=== PATIENT | female | born 1945 | race Caucasian/White ===

== ENCOUNTER → 2023-05-28 10:52 | Outpatient (REF) | payer MEDICARE, SELFPAY | LOC: DHCBC MAIN 10:52 | PROVIDERS: ATTENDING PHYSICIAN Internal Medicine Cardiovascular Disease; FAMILY PHYSICIAN Family Medicine | DX: I48.21 Permanent atrial fibrillation (principal); R55 Syncope and collapse; I36.1 Nonrheumatic tricuspid (valve) insufficiency | CPT/HCPCS: 93306 ==

== ENCOUNTER → 2024-03-16 09:39 | Outpatient (REF) | payer MEDICARE, SELFPAY | LOC: RCS 09:39 | PROVIDERS: ATTENDING PHYSICIAN Nurse Practitioner Gerontology; FAMILY PHYSICIAN Family Medicine | DX: I48.21 Permanent atrial fibrillation (principal); R42 Dizziness and giddiness | CPT/HCPCS: 93225; 93226 ==

== ENCOUNTER → 2024-05-04 09:39 | Outpatient (REF) | payer MEDICARE, SELFPAY | LOC: RAD 09:39 | PROVIDERS: ATTENDING PHYSICIAN Nurse Practitioner Family | DX: J45.909 Unspecified asthma, uncomplicated (principal) | CPT/HCPCS: 71046 ==

== ENCOUNTER → 2024-07-01 08:44 | Outpatient (REF) | payer MEDICARE, SELFPAY | LOC: RCS 08:44 | PROVIDERS: ATTENDING PHYSICIAN Internal Medicine Cardiovascular Disease; FAMILY PHYSICIAN Family Medicine | DX: I36.1 Nonrheumatic tricuspid (valve) insufficiency (principal); I34.0 Nonrheumatic mitral (valve) insufficiency | CPT/HCPCS: 93306 ==

== ENCOUNTER → 2024-07-22 08:18 | Outpatient (REF) | payer MEDICARE, SELFPAY | LOC: RAD 08:18 | PROVIDERS: ATTENDING PHYSICIAN Nurse Practitioner Family | DX: M54.2 Cervicalgia (principal) | CPT/HCPCS: 72050 ==

== ENCOUNTER → 2025-01-11 10:57 | Outpatient (REF) | payer MEDICARE, SELFPAY | LOC: PAVMRI 10:57 | PROVIDERS: ATTENDING PHYSICIAN Internal Medicine; FAMILY PHYSICIAN Family Medicine | DX: M48.02 Spinal stenosis, cervical region (principal) | CPT/HCPCS: 72141 ==

== ENCOUNTER 2025-03-18 11:17 | Outpatient (RCR) | payer MEDICARE, SELFPAY ==
[2025-03-11 10:51] VITALS: BP 142/66
[2025-03-11] MEDS: VENOFER 110 MG IV (11:03)
[2025-03-11 12:26] VITALS: BP 140/67
[2025-03-18 11:30] VITALS: BP 186/99
[2025-03-18] MEDS: VENOFER 110 MG IV (11:40)
[2025-03-18 12:47] VITALS: BP 171/75
== END 2025-03-20 23:59 | disposition home or self-care (01) ==
LOC: OID 11:17
PROVIDERS: ATTENDING PHYSICIAN Family Medicine
DX: D50.8 Other iron deficiency anemias (principal); M79.7 Fibromyalgia; J44.9 Chronic obstructive pulmonary disease, unspecified
CPT/HCPCS: 96365; J1756

== ENCOUNTER 2025-04-07 14:18 | Outpatient (RCR) | payer MEDICARE, SELFPAY ==
[2025-03-25 11:02] VITALS: BP 128/77; BMI 37.1
[2025-03-25] MEDS: VENOFER 110 MG IV (11:18)
[2025-03-25 12:44] VITALS: BP 152/58
[2025-04-01] MEDS: VENOFER 110 MG IV (11:02)
[2025-04-01 11:07] VITALS: BP 141/58
[2025-04-01 12:50] VITALS: BP 106/51
[2025-04-07 14:25] VITALS: BP 148/72
[2025-04-07] MEDS: VENOFER 110 MG IV (14:55)
[2025-04-07 16:32] VITALS: BP 135/72
== END 2025-04-08 09:33 | disposition home or self-care (01) ==
LOC: OID 14:18
PROVIDERS: ATTENDING PHYSICIAN Family Medicine
DX: D50.8 Other iron deficiency anemias (principal); M79.7 Fibromyalgia
CPT/HCPCS: 96365; J1756